=== PATIENT | female | born 1980 | race Caucasian/White ===

== ENCOUNTER 2017-01-01 17:50 | Emergency (ER) | payer SELFPAY ==
[2017-01-01 17:57] VITALS: BP 130/59; PULSE 95; TEMP 98.7; BMI 32.9
[2017-01-01] MEDS ORDERED: SODIUM CHLORIDE 1,000 ML IV STA (19:52)
[2017-01-01 20:38] LABS: BASOPHIL 1.1 % (0-2.0); EOSINOPHIL 3.7 % (0-4.5); MCH 27.4 pg (25.7-33.7); MCHC 33.5 g/dl (32.0-36.0); MEAN CELL VOLUME 81.9 fl (80-96); MEAN PLT VOLUME 8.1 fl (7.5-11.1); NEUTROPHILS 54.9 % (42.8-82.8); PLATELET COUNT 306 K/MM3 (134-434); RDW 13.7 % (11.6-15.6); WHITE BLOOD COUNT 7.8 K/mm3 (4.0-10.0)
[2017-01-01 20:56] LABS: URINE APPEARANCE CLEAR; URINE BILIRUBIN NEGATIVE (NEGATIVE); URINE BLOOD 3+ (NEGATIVE); URINE COLOR LTYELLOW; URINE GLUCOSE (UA) NEGATIVE (NEGATIVE); URINE KETONE NEGATIVE (NEGATIVE); URINE LEUK ESTERASE NEGATIVE (NEGATIVE); URINE NITRITE NEGATIVE (NEGATIVE); URINE PROTEIN NEGATIVE (NEGATIVE); URINE UROBILINOGEN NEGATIVE mg/dL (0.2-1.0)
[2017-01-01 21:00] LABS: URINE RBC 56 /hpf (0-3); URINE WBC <1 /hpf (3-5)
[2017-01-01 21:23] LABS: ALBUMIN 3.7 g/dl (3.4-5.0); ALK PHOS 89 U/L (45-117); ANION GAP 7 (8-16); BILIRUBIN,TOTAL 0.2 mg/dL (0.2-1.0); CO2 25 mmol/L (21-32); CREATININE 0.9 mg/dL (0.55-1.02); GLUCOSE,RANDOM 85 mg/dL (74-106); SGOT/AST 33 U/L (15-37); SGPT/ALT 40 U/L (12-78); TOT PROT 7.9 g/dl (6.4-8.2)
--- NOTE | 2017-01-01 22:18 | PDOC ---
History of Present Illness - General Chief Complaint: Vaginal Bleeding Stated Complaint: VAGINAL BLEEDING Time Seen by Provider: 01/01/17 19:38 History Source: Patient, Spouse, Paper Slitter Used Exam Limitations: Language Barrier - History of Present Illness Travel History: No Initial Comments: 01/01/17 22:13 36yo Female patient with no significant past medical history presents to ED c/o lower abd pain and back pain. Patient reports she is 1 month . [facility] ( [address] [place] [id number]. [phone]. Phoebe Lay MD). 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 Patient denies fever, CP, Diff breathing, cough, rectal bleeding, hematuria, or any other complaints at this time. Timing/Duration: reports: getting worse Quality: reports: moderate, sharpness Abdominal Pain Onset Location: reports: suprapubic Pain Radiation: reports: back Past History - Travel Traveled outside of the country in the last 30 days: No Close contact w/someone who was outside of country & ill: No - Past Medical History Allergies/Adverse Reactions: Allergies Allergy/AdvReac Type Severity Reaction Status Date / Time No Known Allergies Allergy Verified 01/01/17 17:57 Home Medications: Ambulatory Orders Ibuprofen [Motrin -] 600 mg PO Q6H PRN #30 tablet 01/01/17 Oxycodone HCl/Acetaminophen [Endocet 5-325 Tablet] 1 each PO Q6H PRN #16 tablet MDD 4 tabs 01/01/17 Other medical history: DENIES - Reproductive History Is Patient Now?: Yes (#): 3 Para: 2 Therapeutic (s) & number: No Tubal Ligation: Yes (18 years ago) - Suicide/Smoking/Psychosocial Hx Smoking History: Never smoked Hx Alcohol Use: No Drug/Substance Use Hx: No Abd/GI Specific PMHX - Complaint Specific PMHX Colitis: No Diverticulitis: No Gall Bladder Disease: No GERD: No Hepatitis: No Irritable Bowel Synd (IBS): No Pancreatitis: No GI Ulcer Disease: No Review of Systems - Review of Systems Able to Perform ROS?: Yes Is the patient limited Sudanese proficient: No Respiratory: No: Shortness of Breath, Wheezing Cardiac (ROS): No: Chest Pain ABD/GI: Yes: Abdominal Distended, Abdominal cramping. No: Diarrhea, Nausea, Vomiting : Yes: Other (Vaginal Bleeding.). No: Burning, Dysuria, Discharge, Flank Pain , Hematuria, Pain Musculoskeletal: Yes: Back Pain All Other Systems: Reviewed and Negative *Physical Exam - Vital Signs Last Vital Signs Temp Pulse Resp BP Pulse Ox 98.7 F 95 H 20 130/59 99 01/01/17 17:54 01/01/17 17:54 01/01/17 17:54 01/01/17 17:54 01/01/17 17:54 - Physical Exam General Appearance: Yes: Nourished, Appropriately Dressed. No: Apparent Distress, Mild Distress, Moderate Distress, Severe Distress Neck: positive: Trachea midline, Supple. negative: Rigid, Stridor, Lymphadenopathy (R), Lymphadenopathy (L), Rigidity, Tender lateral, Tender midline Respiratory/Chest: positive: Lungs Clear, Normal Breath Sounds. negative: Chest Tender, Respiratory Distress, Accessory Muscle Use, Labored Respiration, Rapid RR, Rhonchi, Stridor, Wheezing Cardiovascular: positive: Regular Rhythm, Regular Rate Female Pelvic Exam: positive: cervical os closed, normal adnexa, vaginal bleeding. negative: CMT, discharge, lesions, adnexal tenderness Gastrointestinal/Abdominal: positive: Normal Bowel Sounds, Soft, Distended. negative: Tender, Guarding, Rebound, Tenderness Musculoskeletal: positive: Normal Inspection. negative: CVA Tenderness Extremity: positive: Normal Capillary Refill, Normal Inspection, Normal Range of Motion. negative: Pedal Edema, Swelling, Calf Tenderness, Erythema, Inflammation Integumentary: positive: Normal Color, Dry, Warm Neurologic: positive: quality control tech raw materials II-XII NML intact, Fully Oriented, Alert, Normal Mood/ Affect, Normal Response, Motor Strength / ED Treatment Course - LABORATORY CBC & Chemistry Diagram: 01/01/17 20:35 01/01/17 20:35 - ADDITIONAL ORDERS Additional order review: Laboratory Results 01/01/17 01/01/17 01/01/17 20:50 20:35 20:35 Sodium 137 Potassium 4.2 Chloride 105 Carbon Dioxide 25 Anion Gap 7 L BUN 16 Creatinine 0.9 Creat Clearance w eGFR > 60 Random Glucose 85 Calcium 9.0 Total Bilirubin 0.2 AST 33 ALT 40 Alkaline Phosphatase 89 Total Protein 7.9 Albumin 3.7 Beta HCG, Quant < 1.0 Urine Color Ltyellow Urine Appearance Clear Urine pH 5.0 Urine Protein Negative Urine Glucose (UA) Negative Urine Ketones Negative Urine Blood 3+ H Urine Nitrite Negative Urine Bilirubin Negative Urine Urobilinogen Negative Urine RBC 56 Urine WBC <1 Ur Epithelial Cells Rare Urine HCG, Qual Negative Blood Type O POSITIVE Antibody Screen Negative 01/01/17 20:35 RBC 4.91 MCV 81.9 MCHC 33.5 RDW 13.7 MPV 8.1 Neutrophils % 54.9 Lymphocytes % 32.2 Monocytes % 8.1 Eosinophils % 3.7 Basophils % 1.1 - RADIOLOGY Radiology Studies Ordered: Category Date Time Status <14WKS US [US] Stat Ultrasound 01/01/17 19:52 Ordered - Medications Given in the ED: ED Medications Discontinued Medications Generic Name Dose Route Start Last Admin Trade Name Freq PRN Reason Stop Dose Admin Sodium Chloride 1,000 mls @ 1,000 mls/hr 01/01/17 19:52 01/01/17 20:47 Normal Saline - IV 01/01/17 20:51 1,000 mls/hr ASDIR STA Administration *DC/Admit/Observation/Transfer Diagnosis at time of Disposition: Miscarriage - Discharge Dispostion Disposition: HOME Condition at time of disposition: Stable Admit: No - Prescriptions Prescriptions: Oxycodone HCl/Acetaminophen [Endocet 5-325 Tablet] 1 each PO Q6H PRN #16 tablet MDD 4 tabs PRN Reason: Severe Pain Ibuprofen [Motrin -] 600 mg PO Q6H PRN #30 tablet PRN Reason: Mild Pain - Referrals Referrals: Phoebe Lay [Non Staff, Medical] - - Patient Instructions Printed Discharge Instructions: DI for Miscarriage Additional Instructions: Siga con el Dr. Lay esta semana para ángela evaluacin ms detallada. Kief los medicamentos segn lo prescrito. Regrese si presenta dolor abdominal intenso, n useas y vmitos, fiebre o cualquier otra queja en travis momento. No conduzca, bolivar alcohol ni opere maquinaria pesada mientras est tomando Endocet. Follow up with Dr. Alireza this week for further evaluation. Take medications as prescribed. Return if you develop severe abdominal pain, nausa and vomiting, fever, or any other complaints at this time. Do not drive, drink alcohol, or operate heavy machinery while taking Endocet. Print Language: BARBADIAN
--- NOTE | 2017-01-01 23:29 | PDOC ---
*Physical Exam - Vital Signs Last Vital Signs Temp Pulse Resp BP Pulse Ox 98.7 F 95 H 20 130/59 99 01/01/17 17:54 01/01/17 17:54 01/01/17 17:54 01/01/17 17:54 01/01/17 17:54 - Physical Exam Comments: 01/01/17 23:29 The patient was examined by [TARYN Alfred] under my direct supervision. I personally evaluated the patient. I concur with the above findings and the plan of care. ED Treatment Course - LABORATORY CBC & Chemistry Diagram: 01/01/17 20:35 01/01/17 20:35 - ADDITIONAL ORDERS Additional order review: Laboratory Results 01/01/17 01/01/17 01/01/17 20:50 20:35 20:35 Sodium 137 Potassium 4.2 Chloride 105 Carbon Dioxide 25 Anion Gap 7 L BUN 16 Creatinine 0.9 Creat Clearance w eGFR > 60 Random Glucose 85 Calcium 9.0 Total Bilirubin 0.2 AST 33 ALT 40 Alkaline Phosphatase 89 Total Protein 7.9 Albumin 3.7 Beta HCG, Quant < 1.0 Urine Color Ltyellow Urine Appearance Clear Urine pH 5.0 Ur Specific [place] 1.015 Urine Protein Negative Urine Glucose (UA) Negative Urine Ketones Negative Urine Blood 3+ H Urine Nitrite Negative Urine Bilirubin Negative Urine Urobilinogen Negative Urine RBC 56 Urine WBC <1 Ur Epithelial Cells Rare Urine HCG, Qual Negative Blood Type O POSITIVE Antibody Screen Negative 01/01/17 20:35 RBC 4.91 MCV 81.9 MCHC 33.5 RDW 13.7 MPV 8.1 Neutrophils % 54.9 Lymphocytes % 32.2 Monocytes % 8.1 Eosinophils % 3.7 Basophils % 1.1 - Medications Given in the ED: ED Medications Discontinued Medications Generic Name Dose Route Start Last Admin Trade Name Freq PRN Reason Stop Dose Admin Sodium Chloride 1,000 mls @ 1,000 mls/hr 01/01/17 19:52 01/01/17 20:47 Normal Saline - IV 01/01/17 20:51 1,000 mls/hr ASDIR STA Administration *DC/Admit/Observation/Transfer Diagnosis at time of Disposition: Miscarriage - Prescriptions Prescriptions: Oxycodone HCl/Acetaminophen [Endocet 5-325 Tablet] 1 each PO Q6H PRN #16 tablet MDD 4 tabs PRN Reason: Severe Pain Ibuprofen [Motrin -] 600 mg PO Q6H PRN #30 tablet PRN Reason: Mild Pain - Referrals Referrals: Phoebe Lay [Non Staff, Medical] - - Patient Instructions Printed Discharge Instructions: DI for Miscarriage Additional Instructions: Siga con el Dr. Lay esta semana para ángela evaluacin ms detallada. Risingsun los medicamentos segn lo prescrito. Regrese si presenta dolor abdominal intenso, n useas y vmitos, fiebre o cualquier otra queja en travis momento. No conduzca, bolivar alcohol ni opere maquinaria pesada mientras est tomando Endocet. Follow up with Dr. Lay this week for further evaluation. Take medications as prescribed. Return if you develop severe abdominal pain, nausa and vomiting, fever, or any other complaints at this time. Do not drive, drink alcohol, or operate heavy machinery while taking Endocet. Print Language: SAMMARINESE - Post Discharge Activity
== END 2017-01-01 22:44 | disposition home or self-care (01) ==
LOC: JER 17:50
PROC: 3E0337Z Introduction of Electrolytic and Water Balance Substance into Peripheral Vein, Percutaneous Approach (ICD-10-PCS; principal; 2017-01-01)
DX: O26.891 Other specified pregnancy related conditions, first trimester (principal); Z3A.01 Less than 8 weeks gestation of pregnancy; O03.9 Complete or unspecified spontaneous abortion without complication
CPT/HCPCS: 36415; 80053; 81003; 81015; 84702; 84703; 85025; 86850; 86900; 86901; 99283-25